=== PATIENT | female | born 1995 ===

== ENCOUNTER 2022-07-14 21:22 | Emergency (ER) | payer BC ==
[2022-07-14] MEDS ORDERED: Lidocaine 1% 5 ML VIAL INJECT STA (21:47)
[2022-07-14] MEDS ORDERED: Diphtheria,Pertussis(Acell),Tetanus Vaccine 0.5 ML Syringe IM ONE (21:47)
== END 2022-07-14 23:50 | disposition home or self-care (01) ==
LOC: MW.ED 21:22
DX: S61.012A Laceration without foreign body of left thumb without damage to nail, initial encounter (principal); Z23 Encounter for immunization; Z88.1 Allergy status to other antibiotic agents; Z88.8 Allergy status to other drugs, medicaments and biological substances; W26.0XXA Contact with knife, initial encounter
CPT/HCPCS: 12001; 90471; 90715; 99282-25; J3490